=== PATIENT | female | born 1975 | race Caucasian/White ===

== ENCOUNTER → 2016-12-09 | Outpatient (CLI) | payer OTHER ==
[~2016-12-09] MED LIST: ALDACTONE 25MG25 MG NG; AMLO2.5T PO; AMLODIPINE BES2.5 MG; BISOPROLOL PO; DARVOCET-N 1001 EACH PO; HYDROCHLOROTHIA25 M1 PO; K-DUR 1010 MEQ PO; KARIVA1 TAB PO; RITE AID ASPIRI81 M1 PO; SULFAMETHOXAZOL1 TA6 PO; ZIAC 5 MG-6.251 TAB PO; ZOFRAN ODT4 MG PO
== END ==
LOC: LAB 14:57
DX: N39.0 Urinary tract infection, site not specified (principal); M54.5 Low back pain